=== PATIENT | male | born 1975 | race Caucasian/White ===

== ENCOUNTER 2018-08-11 17:48 | Emergency (ER) | payer BC ==
[~2018-08-11] VITALS: Ht 180.3 cm; Wt 79.4 kg
--- NOTE | 2018-08-11 18:21 | NUR ---
PT IS IN ROOM #2A. DR SINGLETARY EVALUATED THE PT.
[2018-08-11] MEDS ORDERED: IBUPROFEN 600 MG TABLET ONE (19:27)
[2018-08-11] MEDS ORDERED: IBUPROFEN 600 MG TABLET PO ONE (19:30)
--- NOTE | 2018-08-11 19:30 | NUR ---
Patient discharged to home in stable conditon. Written and verbal after care instructions given. Patient verbalizes understanding of instructions. Pt ambulated out of ER with steady gait, no acute signs of distress, VSS, all belongings taken.
[2018-08-11 19:32] VITALS: BP 120/61
== END 2018-08-11 19:33 | disposition home or self-care (01) ==
LOC: ER 17:49
DX: J06.9 Acute upper respiratory infection, unspecified (principal)
CPT/HCPCS: 71045; 87400; A4663